=== PATIENT | female | born 1990 | race Caucasian/White ===

== ENCOUNTER 2016-09-10 05:56 | Inpatient (IN) | payer MEDICAID ==
[2016-09-10] VITALS (17 sets, daily range): BP systolic 93–123; RESP 16–24; TEMP 97.5–98; Ht 175.3 cm; Wt 138.8 kg
[~2016-09-10] VITALS: Ht 175.3 cm; Wt 138.8 kg
[2016-09-10] MEDS ORDERED: FAMOTIDINE 20 MG INJ IV ONE (06:05)
[2016-09-10] MEDS ORDERED: CEFAZOLIN 3,000 MG in SODIUM CHLORIDE 0.9% 100 ML IV ONE (06:05)
[2016-09-10] MEDS ORDERED: METOCLOPRAMIDE 10 MG/2 ML VIAL IV PUSH ONE (06:05)
[2016-09-10] MEDS ORDERED: LIDOCAINE 1% BUFFERED 1 ML SYR INTRADERM PRN (06:05)
[2016-09-10] MEDS ORDERED: LACT RINGERS 1,000 ML IV SCH (06:05)
[2016-09-10] MEDS ORDERED: Flu Vaccine Quadrivalent 60 MCG/0.5 ML IM.VACC ONE (07:20)
[2016-09-10] MEDS ORDERED: MORPHINE PF 0.5 MG/ML 10 ML IV ONE (07:43)
[2016-09-10] MEDS ORDERED: NALOXONE 0.4 MG/ML AMP IV PRN (07:45)
[2016-09-10] MEDS ORDERED: ONDANSETRON 4 MG VIAL IV PRN ×3 (07:45→08:20)
[2016-09-10] MEDS ORDERED: DILAUDID 1 MG/ML AMP IV PRN (07:45)
[2016-09-10] MEDS ORDERED: MORPHINE 2 MG/ML SYR IV PRN ×2 (07:45)
[2016-09-10] MEDS ORDERED: DIPHENHYDRAMINE 50 MG/ML VIAL IV PRN (07:45)
[2016-09-10] MEDS ORDERED: MEPERIDINE 25 MG/ML IV PRN (07:45)
[2016-09-10] MEDS ORDERED: PROMETHAZINE 25 MG/ML VIAL IV PRN (07:45)
[2016-09-10] MEDS ORDERED: SALINE FLUSH 10 ML FLUSH PRN (07:45)
[2016-09-10] MEDS ORDERED: MORPHINE 4 MG/ML SYR IV PRN (07:45)
[2016-09-10] MEDS ORDERED: OXYCODONE 5 MG TAB PO PRN (07:45)
[2016-09-10] MEDS: SALINE FLUSH 10 ML FLUSH SCH ×2 (08:00→19:27)
[2016-09-10] MEDS ORDERED: MEASLES,MUMPS,RUBELLA VAC SUBQ.VACC ONE (08:20)
[2016-09-10] MEDS ORDERED: TDaP 0.5 ML VIAL IM.VACC ONE (08:20)
[2016-09-10] MEDS ORDERED: OXYTOCIN 15 UNITS/250 ML NS 250 ML IV SCH (08:20)
[2016-09-10] MEDS ORDERED: MAG HYDROX 30 ML UDC PO PRN (08:20)
[2016-09-10] MEDS ORDERED: BISACODYL 10 MG SUPP RECTAL PRN (08:20)
[2016-09-10] MEDS: DOCUSATE SOD 100 MG CAP PO SCH (09:00)
[2016-09-10] MEDS: BUTORPHANOL 1 MG/ML VIAL IV PRN ×2 (09:04→15:45)
[2016-09-10] MEDS: KETOROLAC 30 MG/ML VIAL IV SCH ×3 (10:43→23:16)
[2016-09-10] MEDS: MORPHINE 4 MG/ML SYR IV PRN ×2 (12:48→22:21)
[2016-09-10] MEDS: LACT RINGERS 1,000 ML IV SCH ×2 (13:20→20:39)
[2016-09-10] MEDS: CEFAZOLIN 3,000 MG in SODIUM CHLORIDE 0.9% 100 ML IV SCH ×2 (15:50→23:14)
[2016-09-11 00:59] VITALS: BP_SYST 110; RESP 16; TEMP 98
[2016-09-11] MEDS: MORPHINE 4 MG/ML SYR IV PRN (03:25)
[2016-09-11] MEDS: LACT RINGERS 1,000 ML IV SCH (03:27)
[2016-09-11] MEDS: SODIUM CHLORIDE 0.9% FLUSH BAG 500 ML IV SCH (05:35)
[2016-09-11] MEDS: KETOROLAC 30 MG/ML VIAL IV SCH (06:33)
[2016-09-11 06:34] VITALS: BP_SYST 120; RESP 20; TEMP 98.2
[2016-09-11] MEDS: DOCUSATE SOD 100 MG CAP PO SCH (07:56)
[2016-09-11] MEDS: OXYCODONE/APAP 5/325 TAB PO PRN ×5 (07:56→21:05)
[2016-09-11] MEDS: SALINE FLUSH 10 ML FLUSH SCH ×2 (08:00→20:00)
[2016-09-11 09:37] VITALS: BP_SYST 112; RESP 18; TEMP 97.3
[2016-09-11] MEDS: Ibuprofen 600 MG TAB PO SCH ×2 (11:53→17:59)
[2016-09-11 17:17] VITALS: BP_SYST 131; RESP 20; TEMP 98.3
[2016-09-12] MEDS: OXYCODONE/APAP 5/325 TAB PO PRN ×3 (01:30→09:35)
[2016-09-12] MEDS: Ibuprofen 600 MG TAB PO SCH ×3 (05:28→12:36)
[2016-09-12 05:31] VITALS: BP_SYST 110; RESP 18; TEMP 97.6
[2016-09-12] MEDS: SODIUM CHLORIDE 0.9% FLUSH BAG 500 ML IV SCH (06:00)
[2016-09-12] MEDS: SALINE FLUSH 10 ML FLUSH SCH (08:00)
[2016-09-12] MEDS: DOCUSATE SOD 100 MG CAP PO SCH (09:34)
[2016-09-12 09:54] VITALS: BP_SYST 120; RESP 20; TEMP 97.8
[2016-09-12 12:25] VITALS: BP_SYST 120; RESP 20; TEMP 97.8
== END 2016-09-12 13:24 | disposition home or self-care (01) | DRG 766 ==
LOC: LD 05:56 → OB 12:00
PROVIDERS: ADMIT Obstetrics & Gynecology; ATTEND Obstetrics & Gynecology
PROC: 10D00Z1 Extraction of Products of Conception, Low, Open Approach (ICD-10-PCS; principal; 2016-09-10)
PROC: 0UL70CZ Occlusion of Bilateral Fallopian Tubes with Extraluminal Device, Open Approach (ICD-10-PCS; 2016-09-10)
DX: O34.219 Maternal care for unspecified type scar from previous cesarean delivery (principal); Z37.0 Single live birth; Z3A.39 39 weeks gestation of pregnancy
CPT/HCPCS: 82803; 85025